=== PATIENT | male | born 1940 | race Caucasian/White ===

== ENCOUNTER 2017-02-01 14:18 | Outpatient (CLI) | payer MEDICARE, OTHER ==
[2017-02-01 14:29] LABS: APPEARANCE,URINE Clear (CLEAR); COLOR,URINE Yellow (YELLOW); OCCULT BLOOD,URINE 2+ (NEGATIVE); PH URINE 5.5 (5.0 - 8.0); UROBILINOGEN URINE 0.2 Eu (0.2-1.0)
[2017-02-02 03:22] LABS: PROTEIN mg/dL 279 mg/dL
== END 2017-02-01 14:20 ==
LOC: LAB 14:18
PROVIDERS: ATTEND Internal Medicine
DX: N25.0 Renal osteodystrophy (principal); R31.9 Hematuria, unspecified; R80.9 Proteinuria, unspecified; N05.9 Unspecified nephritic syndrome with unspecified morphologic changes
CPT/HCPCS: 81002; 82570; 84156